=== PATIENT | male | born 1955 ===

== ENCOUNTER 2022-10-14 07:15 | Inpatient (IN) | payer OTHER ==
[~2022-10-14] VITALS: Ht 152.4 cm; Wt 88.5 kg
[2022-10-14] MEDS ORDERED: JANUMET 50-1,01 EACH PO (08:36)
[2022-10-14] MEDS ORDERED: GLIMEPIRIDE4 M1 PO (08:37)
[2022-10-14] MEDS ORDERED: CRESTOR5 MG PO (08:38)
[2022-10-14] MEDS ORDERED: SYNTHROID75 MCG PO (08:38)
[2022-10-14] MEDS ORDERED: TOPROL XL25 M1 PO (08:39)
[2022-10-14] MEDS ORDERED: VASOTEC2.5 MG PO (08:39)
[2022-10-14] MEDS ORDERED: XARELTO10 MG PO (08:39)
[2022-10-14] MEDS ORDERED: GRALISE600 MG PO (08:40)
[2022-10-14] MEDS ORDERED: LAMICTAL150 M1 PO (09:03)
[2022-10-14] MEDS ORDERED: REMERON15 M1 PO (09:04)
[2022-10-16] MEDS ORDERED: COLACE100 MG PO (14:36)
[2022-10-16] MEDS ORDERED: MEDROLPACK PO (14:36)
[2022-10-16] MEDS ORDERED: PERCOCET 5-3251 EACH PO (14:36)
[2022-10-16] MEDS ORDERED: AMOX-CLAV 875-1 EACH PO (14:36)
[2022-10-16] MEDS ORDERED: NEURONTIN800 MG PO (14:37)
== END 2022-10-18 17:17 | DRG 455 ==
LOC: O/R 10-16 06:45 → SURH 10-16 07:15 → PED 10-16 15:29
PROVIDERS: ADMIT Orthopaedic Surgery Orthopaedic Surgery of the Spine; ATTEND Orthopaedic Surgery Orthopaedic Surgery of the Spine
PROC: 0SG1071 Fusion of 2 or more Lumbar Vertebral Joints with Autologous Tissue Substitute, Posterior Approach, Posterior Column, Open Approach (ICD-10-PCS; 2022-10-16)
PROC: 0ST20ZZ Resection of Lumbar Vertebral Disc, Open Approach (ICD-10-PCS; 2022-10-16)
PROC: 0QB30ZZ Excision of Left Pelvic Bone, Open Approach (ICD-10-PCS; 2022-10-16)
PROC: 07DR0ZZ Extraction of Iliac Bone Marrow, Open Approach (ICD-10-PCS; 2022-10-16)
PROC: XRGC0R7 Fusion of 2 or more Lumbar Vertebral Joints using Custom-Made Anatomically Designed Interbody Fusion Device, Open Approach, New Technology Group 7 (ICD-10-PCS; principal; 2022-10-16 14:30)
DX: M48.062 Spinal stenosis, lumbar region with neurogenic claudication (principal); M41.56 Other secondary scoliosis, lumbar region; E03.9 Hypothyroidism, unspecified; E11.9 Type 2 diabetes mellitus without complications; Z79.84 Long term (current) use of oral hypoglycemic drugs

== ENCOUNTER 2022-10-30 13:40 | Emergency (ER) | payer OTHER ==
[~2022-10-30] VITALS: Ht 175.3 cm; Wt 86.2 kg
[~2022-10-30 13:40] MED LIST: AMOX-CLAV 875-1 EACH PO; COLACE100 MG PO; CRESTOR5 MG PO; GLIMEPIRIDE4 M1 PO; GRALISE600 MG PO; JANUMET 50-1,01 EACH PO; LAMICTAL150 M1 PO; MEDROLPACK PO; NEURONTIN800 MG PO; PERCOCET 5-3251 EACH PO; REMERON15 M1 PO; SYNTHROID75 MCG PO; TOPROL XL25 M1 PO; VASOTEC2.5 MG PO; XARELTO10 MG PO
[2022-10-30] MEDS ORDERED: GABAPENTIN800 M1 (13:56)
== END 2022-10-30 18:33 | disposition home or self-care (01) ==
LOC: ER 13:40
DX: M54.9 Dorsalgia, unspecified (principal); Z98.890 Other specified postprocedural states; E11.9 Type 2 diabetes mellitus without complications; Z79.84 Long term (current) use of oral hypoglycemic drugs; I10 Essential (primary) hypertension